=== PATIENT | female | born 1995 | race African-American/Black ===

== ENCOUNTER 2018-03-22 06:57 | Inpatient (IN) ==
[2018-03-22] MEDS: LACTATED RINGERS 1,000 ML IV SCH ×2 (07:48→08:26)
[2018-03-22] MEDS ORDERED: MEPERIDINE 50 MG/1 ML VIAL IV PRN (07:55)
[2018-03-22] MEDS ORDERED: ONDANSETRON 4 MG/2 ML VIAL IV PRN ×2 (07:55→12:43)
[2018-03-22] MEDS ORDERED: OXYTOCIN/LR 20 UNIT/1,000 ML BAG IV SCH (08:00)
[2018-03-22] MEDS ORDERED: AMPICILLIN INJ 2,000 MG in SODIUM CHLORIDE 0.9% 100 ML IV ONE (08:04)
[2018-03-22] MEDS ORDERED: hydrOXYzine HCL 25 MG/1 ML VIAL IM PRN (08:18)
[2018-03-22] MEDS ORDERED: diphenhydrAMINE 50 MG/1 ML VIAL IV PRN (08:18)
[2018-03-22] MEDS ORDERED: ePHEDrine 50 MG/ML AMP IV PRN (08:18)
[2018-03-22] MEDS ORDERED: FAMOTIDINE 20 MG/2 ML VIAL IV ONE (08:18)
[2018-03-22] MEDS ORDERED: PROMETHAZINE 25 MG/1 ML VIAL IM PRN (08:18)
[2018-03-22] MEDS ORDERED: LACTATED RINGERS 1,000 ML IV ONE (08:18)
[2018-03-22] MEDS ORDERED: CITRIC ACID/SODIUM CITRATE 30 ML UDCUP PO ONE (08:18)
[2018-03-22] MEDS ORDERED: fentaNYL 2 MCG/ROPIV 0.2% EPID 150 ML EPIDURAL SCH (08:30)
[2018-03-22 08:37] LABS: Basophils % 0.3 % (0.0-0.8); Eosinophils # 0.1 10*3/uL (0.0-0.87); Eosinophils % 0.9 % (0.00-10.9); Hematocrit 28.6 VOL% (35.7-47.0); Hemoglobin 9.3 GM/DL (12.0-16.0); Immature Granulocytes % 0.6 %; Immature Granulocytes Absolute 0.06 #; Lymphocytes % 19.3 % (21.3-54.2); Mean Corpuscular HGB Conc 32.5 GM/DL (32-36); Mean Corpuscular Hemoglobin 28 PG (27-34); Mean Corpuscular Volume 84.9 FL (87-102); Mean Platelet Volume 10.4 FL (9.6-12.0); Monocytes # 1.2 10*3/uL (0.11-0.8); Neutrophils # 7.2 10*3/uL (1.4-7.4); Neutrophils % 67.9 % (38.7-73.9); Platelet Count 384 T/CUMM (130-400); Red Blood Count 3.37 MC/CUMM (3.8-5.5); Red Cell Distribution Width 13.8 % (9.3-17.3); White Blood Count 10.5 T/CUMM (4-12)
[2018-03-22 09:06] LABS: Alanine Aminotransferase < 9 U/L (13-56); Albumin 2.4 G/DL (3.4-5.0); Alkaline Phosphatase 109 U/L (45-117); Aspartate Amino Transferase 22 U/L (0-37); Bilirubin,Total < 0.39 MG/DL (0.2-1.0); Blood Urea Nitrogen 7 MG/DL (7-18); Calcium 9.3 MG/DL (8.5-10.1); Glucose 70 MG/DL (74-106); Osmolality,Calculated 274.4 MOS/KG (273-304); Potassium 3.6 MMOL/L (3.5-5.1); Sodium 140 MMOL/L (136-145); Total Protein 7.3 G/DL (6.4-8.3); Uric Acid 4.4 MG/DL (2.6-6.0)
[2018-03-22 10:44] LABS: Apearance,Urine CLEAR (Clear); Bilirubin,Urine Negative (Negative); Blood, Urine Negative (Negative); Glucose,Urine (UA) Negative (Negative); Ketones,Urine Negative (Negative); Nitrite,Urine Negative (Negative); Protein,Urine Negative; RBC,Urine <1 /HPF (0-4); Urine Color Colorless (Yellow); Urine Specific Gravity 1.002 (1.001-1.035); Urine Urobilinogen < 2.0 EU/DL (0.2-1.0); WBC,Urine <1 /HPF (0-6)
[2018-03-22] MEDS ORDERED: BENZOCAINE 20%/MENTHOL 0.5% SPRAY 56 GM CAN TOP PRN (12:43)
[2018-03-22] MEDS ORDERED: RHO(D) IMMUNE GLOBULIN 300 MCG SYRINGE IM ONE (12:43)
[2018-03-22] MEDS ORDERED: oxyCODONE/ACETAMINOPHEN 5-325 MG TABLET PO PRN ×2 (12:43)
[2018-03-22] MEDS ORDERED: DIPH/TET/ACEL PERT BOOSTER VACCINE 0.5 ML VIAL IM ONE (12:43)
[2018-03-22] MEDS ORDERED: MEASLES/MUMPS/RUBELLA VACCINE 0.5 ML VIAL SUBCUT ONE (12:43)
[2018-03-22] MEDS ORDERED: BISACODYL 10 MG SUPP RECTAL PRN (12:43)
[2018-03-22] MEDS ORDERED: LANOLIN 50% CREAM 0.3 OZ TUBE TOP PRN (12:43)
[2018-03-22] MEDS ORDERED: HYDROCORTISONE 2.5% RECTAL CREAM 30 GM TUBE TOP PRN (12:43)
[2018-03-22] MEDS ORDERED: ACETAMINOPHEN 325 MG TABLET PO PRN (12:43)
[2018-03-22] MEDS ORDERED: OXYTOCIN/LR 20 UNIT/1,000 ML BAG IV ONE (12:43)
[2018-03-22] MEDS ORDERED: WITCH HAZEL PADS 100/JAR TOP PRN (12:43)
[2018-03-22] MEDS: IBUPROFEN 800 MG TABLET PO PRN (17:04)
[2018-03-22] MEDS: DOCUSATE SODIUM 100 MG CAPSULE PO SCH (22:07)
[2018-03-23 07:19] LABS: Basophils # 0.1 10*3/uL (0.0-0.2); Basophils % 0.4 % (0.0-0.8); Eosinophils # 0.2 10*3/uL (0.0-0.87); Eosinophils % 1.2 % (0.00-10.9); Hematocrit 27.7 VOL% (35.7-47.0); Hemoglobin 9.4 GM/DL (12.0-16.0); Immature Granulocytes % 0.5 %; Immature Granulocytes Absolute 0.08 #; Lymphocytes # 2.7 10*3/uL (1.4-4.0); Lymphocytes % 16.5 % (21.3-54.2); Mean Corpuscular HGB Conc 33.9 GM/DL (32-36); Mean Corpuscular Hemoglobin 27 PG (27-34); Mean Corpuscular Volume 80.8 FL (87-102); Mean Platelet Volume 10.7 FL (9.6-12.0); Monocytes # 1.3 10*3/uL (0.11-0.8); Monocytes % 7.7 % (1.7-12.7); Neutrophils % 73.7 % (38.7-73.9); Platelet Count 306 T/CUMM (130-400); Red Blood Count 3.43 MC/CUMM (3.8-5.5); Red Cell Distribution Width 13.8 % (9.3-17.3); White Blood Count 16.3 T/CUMM (4-12)
[2018-03-23] MEDS: DOCUSATE SODIUM 100 MG CAPSULE PO SCH ×2 (09:46→21:53)
[2018-03-23] MEDS: IBUPROFEN 800 MG TABLET PO PRN (15:51)
[2018-03-24] MEDS: DOCUSATE SODIUM 100 MG CAPSULE PO SCH (09:18)
[2018-03-24 11:30] VITALS: BP 139/82
== END 2018-03-24 13:00 | disposition home or self-care (01) | DRG 560 ==
LOC: N.LDOUT 06:57 → N.LD 07:00 → N.OB 14:11
PROVIDERS: ADMIT Obstetrics & Gynecology; ATTEND Obstetrics & Gynecology

== ENCOUNTER 2019-06-12 10:29 | Inpatient (IN) ==
[2019-06-12] MEDS ORDERED: LACTATED RINGERS 500 ML IV PRN (11:10)
[2019-06-12] MEDS ORDERED: LACTATED RINGERS 250 ML IV ONE (11:10)
[2019-06-12] MEDS ORDERED: ONDANSETRON 4 MG/2 ML VIAL IV PRN (11:10)
[2019-06-12] MEDS ORDERED: diphenhydrAMINE 50 MG/1 ML VIAL IV PRN ×2 (11:13)
[2019-06-12] MEDS ORDERED: PROMETHAZINE 25 MG/1 ML VIAL IM ONE (11:13)
[2019-06-12] MEDS ORDERED: CITRIC ACID/SODIUM CITRATE 30 ML UDCUP PO ONE (11:13)
[2019-06-12] MEDS ORDERED: hydrOXYzine HCL 25 MG/1 ML VIAL IM PRN (11:13)
[2019-06-12] MEDS ORDERED: ePHEDrine 50 MG/ML AMP IV PRN (11:13)
[2019-06-12] MEDS ORDERED: FAMOTIDINE 20 MG/2 ML VIAL IV ONE (11:13)
[2019-06-12] MEDS ORDERED: NALOXONE 0.4 MG/ML VIAL IV PRN (11:13)
[2019-06-12] MEDS ORDERED: ONDANSETRON 4 MG/2 ML VIAL IV ONE (11:13)
[2019-06-12] MEDS ORDERED: ceFAZolin 2,000 MG in PREMIX 1 EACH IV ONE (11:26)
[2019-06-12] MEDS ORDERED: OXYTOCIN/LR 20 UNIT/1,000 ML BAG IV SCH (11:30)
[2019-06-12] MEDS ORDERED: fentaNYL 2 MCG/ROPIV 0.2% EPID 100 ML EPIDURAL SCH (11:30)
[2019-06-12] MEDS: LACTATED RINGERS 1,000 ML IV SCH ×2 (11:35→11:36)
[2019-06-12] MEDS ORDERED: AMPICILLIN INJ 2,000 MG in SODIUM CHLORIDE 0.9% 100 ML IV ONE (11:38)
[2019-06-12 11:50] LABS: Basophils % 0.6 % (0.0-0.8); Eosinophils % 0.5 % (0.00-10.9); Hematocrit 32.6 VOL% (35.7-47.0); Hemoglobin 10.7 GM/DL (12.0-16.0); Immature Granulocytes % 0.5 %; Immature Granulocytes Absolute 0.03 #; Lymphocytes # 1.7 10*3/uL (1.4-4.0); Mean Corpuscular HGB Conc 32.8 GM/DL (32-36); Mean Corpuscular Volume 81.7 FL (87-102); Mean Platelet Volume 10.3 FL (9.6-12.0); Monocytes % 8.8 % (1.7-12.7); Neutrophils % 63.6 % (38.7-73.9); Platelet Count 326 T/CUMM (130-400); Red Blood Count 3.99 MC/CUMM (3.8-5.5); Red Cell Distribution Width 14.7 % (9.3-17.3); White Blood Count 6.6 T/CUMM (4-12)
[2019-06-12 12:15] LABS: Bilirubin,Total 0.4 MG/DL (0.2-1.0); Calcium 8.8 MG/DL (8.5-10.1); Osmolality,Calculated 269.7 MOS/KG (273-304); Total Protein 7.8 G/DL (6.4-8.3)
[2019-06-12 12:58] LABS: Amorphous Crystals,Urine Occasional /HPF (Few); Apearance,Urine CLEAR (Clear); Bilirubin,Urine Negative (Negative); Blood, Urine Negative (Negative); Glucose,Urine (UA) Negative (Negative); Ketones,Urine Negative (Negative); Nitrite,Urine Negative (Negative); Protein,Urine Negative; RBC,Urine <1 /HPF (0-4); Squamous Epithelial Cell,Urine Occasional /HPF (0-10); Urine Color Colorless (Yellow); Urine Specific Gravity 1.004 (1.001-1.035); Urine Urobilinogen < 2.0 EU/DL (0.2-1.0)
[2019-06-12] MEDS ORDERED: METHYLERGONOVINE 0.2 MG/1 ML AMP ONE (14:04)
[2019-06-12] MEDS ORDERED: LIDOCAINE 1% 50 ML VIAL ONE (14:04)
[2019-06-12] MEDS ORDERED: miSOPROStoL 200 MCG TABLET ONE (14:04)
[2019-06-12] MEDS ORDERED: CARBOPROST TROMETHAMINE 250 MCG/ML AMP IM ONE (14:04)
[2019-06-12] MEDS ORDERED: AMPICILLIN INJ 1,000 MG in SODIUM CHLORIDE 0.9% 100 ML IV SCH (15:30)
[2019-06-12] MEDS ORDERED: ceFAZolin 1,000 MG VIAL IM SCH (15:30)
[2019-06-12 15:47] LABS: Cord Arterial Blood HCO3 20.5 MMOL/L
[2019-06-12 15:48] LABS: Cord Venous Blood HCO3 24.4 MMOL/L; Cord Venous Blood PCO2 46.1 MMHG; Cord Venous Blood PO2 25.3 MMHG
[2019-06-12] MEDS ORDERED: ACETAMINOPHEN 325 MG TABLET PO PRN (18:02)
[2019-06-12] MEDS ORDERED: LANOLIN 50% CREAM 0.3 OZ TUBE TOP PRN (18:02)
[2019-06-12] MEDS ORDERED: RHO(D) IMMUNE GLOBULIN 300 MCG SYRINGE IM ONE (18:02)
[2019-06-12] MEDS ORDERED: BISACODYL 10 MG SUPP RECTAL PRN (18:02)
[2019-06-12] MEDS ORDERED: WITCH HAZEL PADS 100/JAR TOP PRN (18:02)
[2019-06-12] MEDS ORDERED: BENZOCAINE 20%/MENTHOL 0.5% SPRAY 56 GM CAN TOP PRN (18:02)
[2019-06-12] MEDS ORDERED: DIPH/TET/ACEL PERT BOOSTER VACCINE 0.5 ML VIAL IM ONE (18:02)
[2019-06-12] MEDS ORDERED: MEASLES/MUMPS/RUBELLA VACCINE 0.5 ML VIAL SUBCUT ONE (18:02)
[2019-06-12] MEDS ORDERED: HYDROCORTISONE 2.5% RECTAL CREAM 30 GM TUBE TOP PRN (18:02)
[2019-06-12] MEDS ORDERED: oxyCODONE/ACETAMINOPHEN 5-325 MG TABLET PO PRN (18:02)
[2019-06-12] MEDS: IBUPROFEN 800 MG TABLET PO PRN ×2 (18:11→23:51)
[2019-06-12] MEDS: DOCUSATE SODIUM 100 MG CAPSULE PO SCH (21:11)
[2019-06-12] MEDS ORDERED: OXYTOCIN/LR 20 UNIT/1,000 ML BAG IV ONE (21:17)
[2019-06-13] MEDS: oxyCODONE/ACETAMINOPHEN 5-325 MG TABLET PO PRN ×3 (03:22→23:24)
[2019-06-13 04:51] LABS: Basophils % 0.2 % (0.0-0.8); Eosinophils % 0.2 % (0.00-10.9); Hematocrit 32.2 VOL% (35.7-47.0); Hemoglobin 10.4 GM/DL (12.0-16.0); Immature Granulocytes % 0.5 %; Immature Granulocytes Absolute 0.09 #; Lymphocytes % 10.9 % (21.3-54.2); Mean Corpuscular HGB Conc 32.3 GM/DL (32-36); Mean Corpuscular Volume 82.6 FL (87-102); Mean Platelet Volume 10.5 FL (9.6-12.0); Monocytes % 5.9 % (1.7-12.7); Neutrophils % 82.3 % (38.7-73.9); Platelet Count 268 T/CUMM (130-400); Red Cell Distribution Width 14.7 % (9.3-17.3); White Blood Count 18.6 T/CUMM (4-12)
[2019-06-13] MEDS: DOCUSATE SODIUM 100 MG CAPSULE PO SCH ×2 (08:49→20:11)
[2019-06-13] MEDS: IBUPROFEN 800 MG TABLET PO PRN ×2 (11:42→23:23)
[2019-06-14 07:14] VITALS: BP 133/77
[2019-06-14] MEDS: DOCUSATE SODIUM 100 MG CAPSULE PO SCH (09:57)
== END 2019-06-14 14:00 | disposition home or self-care (01) | DRG 560 ==
LOC: N.LDOUT 10:29 → N.LD 10:33 → N.OB 20:35
PROVIDERS: ADMIT Obstetrics & Gynecology; ATTEND Obstetrics & Gynecology